=== PATIENT | male | born 1945 | race Caucasian/White ===

== ENCOUNTER → 2018-11-22 | Outpatient (CLI) | payer MEDICARE, OTHER ==
--- NOTE | 2018-11-22 10:08 | Diagnostic Imaging Report ---
TECHNIQUE: Magnetic resonance imaging of the RIGHT HIP was performed WITHOUT injected contrast. HISTORY: Right hip pain, evaluate for labrum tear COMPARISON: None available. FINDINGS: Bone: No focal or infiltrative bone marrow replacing abnormality. No osteonecrosis or acute fracture. Femoroacetabular Joint: Acetabular labrum: Fraying of the superior labrum. Probable intrasubstance tearing of the anterior labrum axial image 10. Articular Cartilage: Partial-thickness cartilage loss. Muscle and tendons: Insertional tendinopathy of the gluteus minimus and medius. Hamstring origins intact. Iliopsoas tendon intact. Soft tissues: Ischiofemoral space preserved. 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 Signed by: Dr. Osman Mccullough M.D. on 11/22/2018 10:04 AM
== END ==
LOC: MRI 08:31
PROVIDERS: ATTEND Family Medicine
DX: S73.191D Other sprain of right hip, subsequent encounter (principal)